=== PATIENT | male | born 1960 | race African-American/Black ===

== ENCOUNTER 2016-11-07 13:59 | Inpatient (IN) | payer OTHER ==
[~2016-11-07] VITALS: Ht 188 cm; Wt 80.6 kg
[~2016-11-07 13:59] MED LIST: AMLODIPINE BESYL5 MG PO; ATARAX,VISTARIL25 MG PO; ATENOLOL25 MG PO; AVELOX400 MG PO; FEXOFENADINE H180 MG PO; HYCODAN SYRUP480 ML PO; LANTUS 10100 UNITS/ SC; LISINOPRIL40 MG PO; LYRICA100 MG PO; LYRICA75 MG PO; MIRTAZAPINE30 MG PO; NOVOLOG 10100 UNITS/ SC; PREDNISONE50 MG PO; ROBITUSSIN AC,T10 ML PO; ROPINIROLE HCL0.5 MG PO; SUDAFED 12-HOU120 MG PO; TRAZODONE HCL50 MG PO; ULTRAM50 MG PO; VENTOLIN HFA18 GM IH
[2016-11-07 15:00] LABS: HEMATOCRIT 41.8 % (38.0-50.0); MCH 28.6 PG (29.0-34.0); MCV 86.5 FL (86-99); MEAN PLAT.VOLUME 9.9 uM^3 (9.0-12.4); PLATELET COUNT 228 K/uL (156-360); RBC DIS.WIDTH-SD 43.4 % (39-53); RED BLOOD COUNT 4.83 M/uL (4.00-5.50); WHITE BLOOD COUNT 5.2 K/uL (4.1-10.2)
[2016-11-07 15:10] LABS: CHLORIDE 112 mEq/L (99-109); POTASSIUM 5.5 mEq/L (3.7-5.4); SODIUM 139 mEq/L (136-147)
[2016-11-07 15:12] LABS: GLUCOSE 172 mg/dL (70-99)
[2016-11-07 15:13] LABS: ANION GAP 10 MEQ/L (2-14)
[2016-11-07 15:16] LABS: GFR ESTIMATE (CALCULATED) 36 mL/min/
[2016-11-07 15:17] LABS: UREA NITROGEN (BUN) 27 mg/dL (9-23)
[2016-11-07 16:46] LABS: INFLUENZA A VIRAL ANTIGEN POSITIVE; INFLUENZA B VIRAL ANTIGEN NEGATIVE
[2016-11-07 17:08] LABS: ADD MIUA? NO; BILIRUBIN NEGATIVE; BLOOD NEGATIVE; COLOR YELLOW ((YELLOW)); GLUCOSE (STRIP) NEGATIVE; KETONES 5; LEUKOCYTES NEGATIVE; NITRITE NEGATIVE; PROTEIN (STRIP) 30; SPECIFIC GRAVITY 1.018 (1.000-1.030); UROBILINOGEN 0.2 MG/DL (0.2-1.0)
[2016-11-07 17:15] LABS: TROP-I INTERPRETATION NEGATIVE; TROPONIN-I < 0.01 ng/mL (0.0-0.30)
[2016-11-07] MEDS ORDERED: ALLEGRA ALLERG180 MG PO (17:41)
[2016-11-07] MEDS ORDERED: IRON325 M1 PO (17:45)
[2016-11-07] MEDS ORDERED: THIAMINE HCL100 MG PO (17:48)
[2016-11-07] MEDS ORDERED: ONE-A-DAY MEN'1 EAC1 PO (17:50)
[2016-11-07] MEDS ORDERED: LOMOTIL TABLET1 EACH PO (17:50)
[2016-11-07] MEDS ORDERED: CELEXA40 MG PO (17:51)
[2016-11-07] MEDS ORDERED: B-12500 MC1 SL (17:51)
[2016-11-07] MEDS ORDERED: QUESTRAN PACKET4 GM PO (17:51)
[2016-11-07 20:07] VITALS: BP 154/80
[2016-11-07 22:08] LABS: POINT-OF-CARE METER ID UU13113700
[2016-11-08] VITALS: BP 146/81
[2016-11-08 04:12] VITALS: BP 131/84
[2016-11-08 07:33] LABS: HEMATOCRIT 34.5 % (38.0-50.0); MCH 29.4 PG (29.0-34.0); MCHC 33.9 G/DL (30.0-36.0); MCV 86.7 FL (86-99); MEAN PLAT.VOLUME 10.3 uM^3 (9.0-12.4); PLATELET COUNT 208 K/uL (156-360); RBC DIS.WIDTH-CV 13.5 % (11.8-14.6); RED BLOOD COUNT 3.98 M/uL (4.00-5.50)
[2016-11-08 07:34] LABS: WHITE BLOOD COUNT 8.6 K/uL (4.1-10.2)
[2016-11-08 08:00] LABS: ANION GAP 9 MEQ/L (2-14); CHLORIDE 111 MEQ/L (99-109); GFR ESTIMATE (CALCULATED) 45 mL/min/; SAMPLE HEMOLYSIS CHECK 0; SAMPLE ICTERIC CHECK 0; SAMPLE LIPEMIA CHECK 0; SODIUM 133 MEQ/L (136-147); UREA NITROGEN (BUN) 30 mg/dL (9-23)
[2016-11-08 08:05] LABS: GLUCOSE 449 mg/dL (70-99); POTASSIUM 6.3 MEQ/L (3.7-5.4)
[2016-11-08 10:54] VITALS: BP 129/76
[2016-11-08 12:51] VITALS: BP 112/71
[2016-11-08 14:10] LABS: ANION GAP 9 MEQ/L (2-14); CHLORIDE 111 MEQ/L (99-109); GFR ESTIMATE (CALCULATED) 45 mL/min/; GLUCOSE 341 mg/dL (70-99); POTASSIUM 5.5 MEQ/L (3.7-5.4); SAMPLE HEMOLYSIS CHECK 0; SAMPLE ICTERIC CHECK 0; SAMPLE LIPEMIA CHECK 0; SODIUM 137 MEQ/L (136-147); UREA NITROGEN (BUN) 31 mg/dL (9-23)
[2016-11-08 16:36] VITALS: BP 119/58
[2016-11-08 20:06] VITALS: BP 105/63
[2016-11-09 00:07] VITALS: BP 119/72
[2016-11-09 04:38] LABS: EOSINOPHIL (%) 0.8 % (0-5); EOSINOPHIL COUNT 0.1 K/uL (0-0.3); HEMATOCRIT 33.2 % (38.0-50.0); IMMATURE GRANULOCYTE (%) 0.4 % (0.0-0.7); IMMATURE GRANULOCYTE COUNT 0.3 K/uL; LYMPHOCYTE COUNT 1.9 K/uL (1.0-2.8); MCH 28.9 PG (29.0-34.0); MCHC 33.7 G/DL (30.0-36.0); MCV 85.8 FL (86-99); MEAN PLAT.VOLUME 9.6 uM^3 (9.0-12.4); MONOCYTE (%) 9.2 % (3-12); MONOCYTE COUNT 0.7 K/uL (0-0.8); NEUTROPHIL (%) 65.1 % (45-76); NEUTROPHIL COUNT 5.2 K/uL (1.8-6.4); PLATELET COUNT 197 K/uL (156-360); RBC DIS.WIDTH-CV 13.4 % (11.8-14.6); RBC DIS.WIDTH-SD 41.1 % (39-53); RED BLOOD COUNT 3.87 M/uL (4.00-5.50)
[2016-11-09 04:51] VITALS: BP 115/72
[2016-11-09 05:02] LABS: CHLORIDE 118 mEq/L (99-109); SODIUM 143 mEq/L (136-147)
[2016-11-09 05:04] LABS: GLUCOSE 193 mg/dL (70-99)
[2016-11-09 05:05] LABS: ANION GAP 6 MEQ/L (2-14)
[2016-11-09 05:08] LABS: GFR ESTIMATE (CALCULATED) 48 mL/min/
[2016-11-09 05:09] LABS: UREA NITROGEN (BUN) 27 mg/dL (9-23)
[2016-11-09 08:41] LABS: INTACT PARATHYROID HORMONE 90 pg/mL (10-69)
[2016-11-09 08:45] VITALS: BP 139/87
[2016-11-09 08:52] VITALS: BP 138/85
[2016-11-09 13:14] LABS: POINT-OF-CARE METER ID UU13113700
[2016-11-09 16:31] VITALS: BP 161/92
[2016-11-09 18:04] LABS: POINT-OF-CARE METER ID UU13113831
[2016-11-09 18:29] LABS: UR CREATININE CONCENTRATION 48.2 MG/DL
[2016-11-09 21:30] VITALS: BP 123/71
[2016-11-09 22:00] LABS: POINT-OF-CARE METER ID UU13113831
[2016-11-10 00:20] VITALS: BP 126/77
[2016-11-10 04:10] VITALS: BP 127/76
[2016-11-10 06:21] LABS: ANION GAP 6 MEQ/L (2-14); CHLORIDE 114 MEQ/L (99-109); GFR ESTIMATE (CALCULATED) 58 mL/min/; GLUCOSE 233 mg/dL (70-99); POTASSIUM 4.6 MEQ/L (3.7-5.4); SAMPLE HEMOLYSIS CHECK 0; SAMPLE ICTERIC CHECK 0; SAMPLE LIPEMIA CHECK 0; SODIUM 140 MEQ/L (136-147); UREA NITROGEN (BUN) 21 mg/dL (9-23)
[2016-11-10 07:25] VITALS: BP 125/73
[2016-11-10 08:11] LABS: POINT-OF-CARE METER ID UU13113700
[2016-11-10] MEDS ORDERED: VITAMIN D-32000 UNI2 PO (08:53)
[2016-11-10 11:38] VITALS: BP 125/72
[2016-11-10 12:36] LABS: POINT-OF-CARE METER ID UU14162513
[2016-11-10] MEDS ORDERED: TAMIFLU30 MG PO (13:48)
== END 2016-11-10 14:41 | disposition home or self-care (01) | DRG 683 ==
LOC: EME 13:59 → 5WEST 18:18 → EDOF 18:18 → 5WEST 19:25
PROVIDERS: Hospitalist; Internal Medicine; Internal Medicine Nephrology; Physician Assistant
DX: N17.9 Acute kidney failure, unspecified (principal); E87.2 Acidosis; E11.21 Type 2 diabetes mellitus with diabetic nephropathy; E87.5 Hyperkalemia; J11.1 Influenza due to unidentified influenza virus with other respiratory manifestations; A08.4 Viral intestinal infection, unspecified; E11.22 Type 2 diabetes mellitus with diabetic chronic kidney disease; I12.9 Hypertensive chronic kidney disease with stage 1 through stage 4 chronic kidney disease, or unspecified chronic kidney disease; Z79.4 Long term (current) use of insulin; N18.4 Chronic kidney disease, stage 4 (severe); E55.9 Vitamin D deficiency, unspecified; E21.3 Hyperparathyroidism, unspecified; E78.5 Hyperlipidemia, unspecified; G62.9 Polyneuropathy, unspecified; G25.81 Restless legs syndrome; F32.9 Major depressive disorder, single episode, unspecified; E11.40 Type 2 diabetes mellitus with diabetic neuropathy, unspecified; E11.65 Type 2 diabetes mellitus with hyperglycemia
CPT/HCPCS: 71020; 71250; 76770; 80048; 80048 91; 80069; 81003; 82009; 82010; 82306; 82570; 82948; 83880; 83970; 84132; 84132 91; 84156; 84300; 84484; 84550; 85025; 85027; 87502; 93005; 94640; 99202; 99281; 99285; G0378; J0610; J1644; J1815; J2930; J7030; J7050

== ENCOUNTER 2017-10-30 18:28 | Emergency (ER) | payer OTHER ==
[~2017-10-30] VITALS: Ht 188 cm; Wt 83.9 kg
[~2017-10-30 18:28] MED LIST changes: +ALLEGRA ALLERG180 MG PO; +B-12500 MC1 SL; +CELEXA40 MG PO; +IRON325 M1 PO; +LOMOTIL TABLET1 EACH PO; +ONE-A-DAY MEN'1 EAC1 PO; +QUESTRAN PACKET4 GM PO; +TAMIFLU30 MG PO; +THIAMINE HCL100 MG PO; +VITAMIN D-32000 UNI2 PO
[2017-10-30 19:10] LABS: HEMATOCRIT 28.1 % (38.0-50.0); HEMOGLOBIN 9.1 G/DL (12.5-16.6); MCHC 32.4 G/DL (30.0-36.0); MCV 89.5 FL (86-99); PLATELET COUNT 215 K/uL (156-360); RBC DIS.WIDTH-CV 14.2 % (11.8-14.6); RED BLOOD COUNT 3.14 M/uL (4.00-5.50)
[2017-10-30 19:27] LABS: CHLORIDE 115 mEq/L (99-109); POTASSIUM 4.7 mEq/L (3.7-5.4); SODIUM 140 mEq/L (136-147)
[2017-10-30 19:29] LABS: GLUCOSE 168 mg/dL (70-99)
[2017-10-30 19:33] LABS: CREATININE 2.1 mg/dL (0.6-1.3); GFR ESTIMATE (CALCULATED) 42 mL/min/ (58.99-99999)
[2017-10-30 19:34] LABS: UREA NITROGEN (BUN) 20 mg/dL (9-23)
[2017-10-30 19:45] LABS: TROP-I INTERPRETATION NEGATIVE; TROPONIN-I 0.01 ng/mL (0.0-0.30)
[2017-10-30 19:49] LABS: INTER. NORMALIZED RATIO 1.2
[2017-10-30 19:51] LABS: PTT 29.2 SEC (25-37)
[2017-10-30 20:02] LABS: APPEARANCE CLEAR ((CLEAR)); BILIRUBIN NEGATIVE; BLOOD NEGATIVE; COLOR YELLOW ((YELLOW)); GLUCOSE (STRIP) NEGATIVE; KETONES NEGATIVE; LEUKOCYTES NEGATIVE; NITRITE NEGATIVE; PROTEIN (STRIP) 30; SPECIFIC GRAVITY 1.017 (1.000-1.030); UROBILINOGEN 0.2 MG/DL (0.2-1.0)
[2017-10-30] MEDS ORDERED: VIBRAMYCIN100 MG PO (22:24)
[2017-10-30] MEDS ORDERED: PERCOCET 5/31 TABLET PO (22:25)
[2017-10-30 22:42] VITALS: BP 159/70
== END 2017-10-30 22:43 | disposition home or self-care (01) ==
LOC: EME 18:28
PROVIDERS: Nurse Practitioner Family
DX: L03.116 Cellulitis of left lower limb (principal); I12.9 Hypertensive chronic kidney disease with stage 1 through stage 4 chronic kidney disease, or unspecified chronic kidney disease; N18.9 Chronic kidney disease, unspecified; R59.0 Localized enlarged lymph nodes; E11.40 Type 2 diabetes mellitus with diabetic neuropathy, unspecified; Z79.4 Long term (current) use of insulin; G25.81 Restless legs syndrome; F41.9 Anxiety disorder, unspecified; F32.9 Major depressive disorder, single episode, unspecified; Z88.0 Allergy status to penicillin
CPT/HCPCS: 70450; 80048; 81003; 84484; 85027; 85610; 85730; 93005; 93971; 99281; 99284